=== PATIENT | male | born 1980 | race Caucasian/White ===

== ENCOUNTER 2017-02-21 22:46 | Emergency (ER) | payer OTHER ==
[2017-02-21] MEDS ORDERED: ONDANSETRON HCL/PF 4 MG/ 2ML VIAL IM ONE (22:52)
[2017-02-21] MEDS ORDERED: HALOPERIDOL LACTATE 5 MG/ML VIAL IM ONE (22:52)
[2017-02-21] MEDS ORDERED: KETOROLAC TROMETHAMINE 60 MG/2 ML VIAL IM ONE (23:52)
[2017-02-21] MEDS ORDERED: PROMETHAZINE HCL 25 MG/ML VIAL IM ONE (23:52)
--- NOTE | 2017-02-22 00:26 | ED Physician Documentation ---
Headache - HISTORIAN Historian: patient - HPI Stated Complaint: MIGRAINE Chief Complaint: Headache Additional Information: chronic migraines since early age Onset: hours (4) Timing: abrupt New Gradual Onset: Yes Exposure To: none Severity: moderate Quality: similar to previous Associated Symptoms: problems with vision, sensitivity to light, nausea, vomiting Preceding Symptoms: visual disturbance Exacerbated By: light, noise Further Comments: no - ROS NEURO/PSYCH: denies: confusion, anxiety, depression, fainting EYES/ENT: denies: sore throat, difficulty swallowing, sinus pain, drainage CVS/RESP: none GI/: denies: abdominal pain, diarrhea, problems urinating, incontinence MS/SKIN/LYMPH: denies: muscle aches, back pain, rash, skin lesions, swollen glands all systems neg except as marked: Yes - PAST HX Medical History: migraines Surgical History: no surgical history Immunizations: referred to PCP Allergies/Adverse Reactions: Allergies Allergy/AdvReac Type Severity Reaction Status Date / Time No Known Allergies Allergy Verified 02/21/17 22:55 Home Medications: Ambulatory Orders Medication Instructions Recorded Citalopram Hydrobromide [Celexa] 40 mg PO QD 02/21/17 SUMAtriptan SUCCINATE [Imitrex] 25 mg PO QDAY 02/21/17 Topiramate [Topamax] 100 mg PO QDAY 02/21/17 Varenicline Tartrate [Chantix] 1 mg PO QDAY 02/21/17 - SOCIAL HX Smoking History: non-smoker Alcohol Use: none Drug Use: none - Family HX Family History: none - VITAL SIGNS Vital Signs: Vital Signs Temp Pulse Resp BP Pulse Ox 98.4 F 91 H 16 159/90 99 02/21/17 22:50 02/21/17 22:50 02/21/17 22:50 02/21/17 22:50 02/21/17 22:50 - REVIEWED ASSESSMENTS Nursing Assessment Reviewed: Yes Vitals Reviewed: Yes Progress - Results/Orders Results/Orders: no testing ordered - Progress Progress: pt. given 10 mg Haldol, 8 mg Zofran, 60 mg Toradol and 25 mg Phenergan IM in er , pain significantly reduced Critical Care Note - Critical Care Note Total Time (mins): 0 ED Results Lab/Radiology - Lab Results Lab Results: none taken - Radiology Radiology Impressions: none taken - Orders Orders: ED Orders Category Date Time Status Haloperidol Lactate [Haldol] Med 02/21/17 22:52 Discontinued 10 mg IM NOW ONE Ketorolac Tromethamine [Toradol] Med 02/21/17 23:52 Once 60 mg IM NOW ONE Ondansetron HCl/Pf [Zofran 4 mg/2 ml] Med 02/21/17 22:52 Discontinued 8 mg IM NOW ONE Promethazine HCl [Phenergan] Med 02/21/17 23:52 Once 25 mg IM NOW ONE Headache Physical Exam - EXAM General Appearance: severe distress EENT: no facial swelling, photophobia, nml ENT, pharynx nml. No: pain over sinuses Neck: normal inspection, thyroid normal, supple Respiratory: no resp distress, chest non-tender, breath sounds normal CVS: reg. rate & rhythm, heart sounds nml Abdomen: non-tender, no organomegaly, nml bowel sounds Skin: color nml, no rash Extremitites: non-tender, normal range of motion - NEURO/PSYCH Higher Functions: alert, oriented x3, nml speech, mood/affect nml Cranial: nml as tested, no evidence of acute CVA Cerebellar: nml as tested Sensorimotor: motor nml, sensation nml Discharge Clincal Impression: Migraine Qualifiers: Migraine type: without aura Status migrainosus presence: without status migrainosus Intractability: intractable Qualified Code(s): G43.019 - Migraine without aura, intractable, without status migrainosus Home Medications: Ambulatory Orders Citalopram Hydrobromide [Celexa] 40 mg PO QD 02/21/17 SUMAtriptan SUCCINATE [Imitrex] 25 mg PO QDAY 02/21/17 Topiramate [Topamax] 100 mg PO QDAY 02/21/17 Varenicline Tartrate [Chantix] 1 mg PO QDAY 02/21/17 Comments: Discharged home in stable condition with scripts for Phenergan 25 mg 1 p.o. qid prn n/v and Toradol 10 mg 1 p.o. qid prn headache #10 each no refill Condition: Stable Disposition: 01 HOME, SELF-CARE Decision to Admit: NO Decision Time: 00:25
[2017-02-22 00:32] VITALS: BP 142/68
== END 2017-02-22 00:20 | disposition home or self-care (01) ==
LOC: ED 22:46
DX: G43.909 Migraine, unspecified, not intractable, without status migrainosus (principal)
CPT/HCPCS: 96372; 99283; J1630; J1885; J2405; J2550